=== PATIENT | male | born 1960 | race Caucasian/White ===

== ENCOUNTER 2020-04-11 05:35 | Inpatient (IN) ==
--- NOTE | 2020-04-07 12:20 | Anesthesiology Consultation ---
Date of Service April 07, 2020 Assessment & Plan (1) Encounter for pre-operative examination: Chart Review Chart Review: Acceptable Risk for Surgery (pending preop Covid testing ) and Patient NOT seen in Pre Admission Testing - Check BSG AM DOS Pt initially scheduled for surgery 03/20/20- rescheduled secondary to testing Covid positive on 03/13/20. Pt was seen in PAT dept on 03/06/20 by Vicki Massey PA-C- per review of consultation- Class II Metabolic Activity, no noted personal or FH anesthesia issues, no worrisome PE issues- Mallampati III. Per nursing assessment 04/07/20, patient denies any recent travel. Pt did test Covid positive 03/13/20- test was done for preop reasons- patient had no symptoms have Covid. Pt has remained asymptomatic- no recent Covid symptoms. No known Covid positive contacts. Pt had repeat Covid testing 04/04/20= awaiting results. Per PCP note: 01/26/20= "Patient was seen in our office 01/21/20. His DM is under better control and he has no current contraindication to surgery." History Surgery Operation Date: 04/11/20 12:25 Proposed Procedures p C5-C6 Anterior Cervical Discectomy Fusion, C4 Corpectomy - Isaac Elizalde DO Height/Weight Height: 5 ft 10 in Weight: 97.522 kg Allergies Allergy/AdvReac Type Severity Reaction Status Date / Time No Known Allergies Allergy Verified 04/07/20 12:12 Medications Home Medications Medication Instructions Recorded Confirmed Last Taken dulaglutide 1.5 mg/0.5 mL 1.5 mg SQ WEEKLY ml 04/21/19 04/07/20 Unknown subcutaneous pen injector glipizide 10 mg tablet, extended 10 mg PO QAM tab 04/21/19 04/07/20 Unknown release 24 hr insulin glargine 100 unit/mL (3 40 units SQ QPM ml 04/21/19 04/07/20 Unknown mL) subcutaneous pen lisinopril 10 1 tab PO QAM 04/21/19 04/07/20 Unknown mg-hydrochlorothiazide 12.5 mg tablet metformin 500 mg tablet 500 mg PO BID 04/21/19 04/07/20 Unknown simvastatin 40 mg PO QAM 10/08/19 04/07/20 Unknown Past Medical History Medical History Diabetes mellitus, type 2 IDDM Pt's Hgb A1C in 10/2019 was 12.2- had med adjustments- Hgb A1C now improved to 7.3 per 03/06/20 labs History of COVID-19 03/13/20 TESTED POSITIVE/NO SYMPTOMS (WAS TESTED PRIOR TO NECK SURGERY) Hyperlipidemia Hypertension Obesity Spinal stenosis cervical region Past Family History Family History Father CHF (congestive heart failure) Mother Diabetes Family history of diabetes mellitus Sister COPD (chronic obstructive pulmonary disease) Brother COPD (chronic obstructive pulmonary disease) Grandmother (Maternal) Family history of diabetes mellitus Past Surgical History Surgical History History of colonoscopy History of tooth extraction Social History Smoking Status: Never smoker tobacco type: smokeless tobacco Do You Dip or Chew Tobacco: Yes (2-3 cans in a week) Hx Alcohol Use: Yes Alcohol type: beer alcohol intake frequency: holidays/special occasions only Hx Substance Use: No Testing Laboratory Results Laboratory Tests 03/06/20 03/06/20 03/06/20 11:52 11:52 11:52 WBC 7.20 Hgb 15.8 Hct 46.8 Plt Count 258 PT 11.4 INR 1.1 APTT 24.8 Sodium 140 Potassium 4.1 Chloride 107 Carbon Dioxide 27 BUN 14 Creatinine 1.07 Glucose 71 Hemoglobin A1c 03/06/20 Unknown WBC Hgb Hct Plt Count PT INR APTT Sodium Potassium Chloride Carbon Dioxide BUN Creatinine Glucose Hemoglobin A1c 7.3 H 03/06/2020 = UA: Negative T&S: O+, antibody negative Electrocardiogram Date: 03/06/20 Findings: + NSR @ (69) Chest X-Ray Date: 10/14/19 Findings: + NAD
[2020-04-11] MEDS ORDERED: ceFAZolin 2000MG 2,000 MG/15 ML SYR IV SCH (06:00)
[2020-04-11] MEDS ORDERED: CeleBREX 200 MG CAP PO SCH (06:00)
[2020-04-11] MEDS ORDERED: GABAPENTIN 600 MG DOSE PO SCH (06:00)
[2020-04-11] MEDS ORDERED: LR 15ML/HR IV SCH (06:00)
[2020-04-11] MEDS: ACETAMINOPHEN 500 MG TAB PO SCH ×2 (06:15→12:58)
[2020-04-11] MEDS ORDERED: fentaNYL citrate 100 MCG/2 ML VIAL ONE ×2 (06:57→06:58)
[2020-04-11] MEDS ORDERED: MIDAZOLAM HCL 1 MG/ML 2ML VIAL ONE (06:57)
[2020-04-11] MEDS ORDERED: BACITRACIN INJ 50,000 UNIT VIAL ONE (07:03)
[2020-04-11] MEDS ORDERED: LIDOCAINE HCL 2% 2 ML VIAL/AMP(20MG/ML) INFIL ONE (07:09)
[2020-04-11] MEDS ORDERED: PROPOFOL IV EMULSION 10 MG/ML 20 ML VIAL IV ONE (07:09)
--- NOTE | 2020-04-11 07:11 | History & Physical Bridge Note ---
Date of Service April 11, 2020 History & Physical Bridge Note I have examined the patient, reviewed the History & Physical and in the interval since the performance of the History & Physical I have noted the following changes of clinical significance: no changes n Anterior cervical corpectomy C4 anterior cervical discectomy and fusion C5-C6
--- NOTE | 2020-04-11 07:12 | History & Physical Report ---
Date of Service April 11, 2020 Assessment & Plan (1) Stenosis of cervical spine with myelopathy: Admission and Anticipated Discharge Date Admission Date: Anterior cervical corpectomy C4 anterior cervical discectomy and fusion C5-C6 History of Present Illness Chief Complaint: Neck and arm pain Primary Care Provider: Jaison De La Cruz M.D. This is a 60-year-old male who presents with chronic persistent neck and arm pain is here for surgical invention. Allergies Allergy/AdvReac Type Severity Reaction Status Date / Time No Known Allergies Allergy Verified 04/11/20 05:52 Home Medications Medication Instructions Recorded Confirmed Type dulaglutide 1.5 mg/0.5 mL 1.5 mg SQ WEEKLY ml 04/21/19 04/11/20 History subcutaneous pen injector glipizide 10 mg tablet, extended 10 mg PO QAM tab 04/21/19 04/11/20 History release 24 hr insulin glargine 100 unit/mL (3 40 units SQ QPM ml 04/21/19 04/11/20 History mL) subcutaneous pen lisinopril 10 1 tab PO QAM 04/21/19 04/11/20 History mg-hydrochlorothiazide 12.5 mg tablet metformin 500 mg tablet 500 mg PO BID 04/21/19 04/11/20 History simvastatin 40 mg PO QAM 10/08/19 04/11/20 History Past Med/Surg History Medical History Diabetes mellitus, type 2 IDDM Pt's Hgb A1C in 10/2019 was 12.2- had med adjustments- Hgb A1C now improved to 7.3 per 03/06/20 labs History of COVID-19 03/13/20 TESTED POSITIVE/NO SYMPTOMS (WAS TESTED PRIOR TO NECK SURGERY) Hyperlipidemia Hypertension Obesity Spinal stenosis cervical region Surgical History History of colonoscopy History of tooth extraction Family History Father CHF (congestive heart failure) Mother Diabetes Family history of diabetes mellitus Sister COPD (chronic obstructive pulmonary disease) Brother COPD (chronic obstructive pulmonary disease) Grandmother (Maternal) Family history of diabetes mellitus Social History Smoking Status: Never smoker Second Hand Exposure: No; Do You Dip or Chew Tobacco: Yes (2-3 cans in a week); Tobacco Cessation Education Requested by Patient: No Hx Alcohol Use: Yes Alcohol type: beer Hx Substance Use: No Preferred Language: Swedish Communication Ability: Effective Glove Wrapper Required: No Beliefs That Will Affect Care: None Current Living Situation: Spouse Feels Safe at Home: Yes Safety Concerns: Feels Safe At This Time Assistive Devices: Glasses Physical Exam Physical Exam: Patient is alert and oriented Heart regular rate and rhythm Lungs clear to auscultation Results & Data ([facility]) Vital Signs (Past 12 Hours) Vital Signs Temp Pulse Resp BP Pulse Ox 04/11/20 06:06 36.6 C 72 18 158/96 H 99
[2020-04-11] MEDS ORDERED: fentaNYL citrate 100 MCG/2 ML VIAL IV PRN (07:26)
[2020-04-11] MEDS ORDERED: MEPERIDINE HCL 25 MG/ML CARP/VIAL IV PRN (07:26)
[2020-04-11] MEDS ORDERED: PHENYLEPHRINE 100MCG/ML 5ML SYR IV PRN (07:26)
[2020-04-11] MEDS ORDERED: ePHEDrine sulfate 50 MG/ML AMP IV PRN (07:26)
[2020-04-11] MEDS ORDERED: ATROPINE SULFATE 0.1 MG/ML 10ML SYR IV PRN (07:26)
[2020-04-11] MEDS ORDERED: HYDROmorphone INJ 1 MG/ML SYRINGE IV PRN ×2 (07:26→11:38)
[2020-04-11] MEDS ORDERED: ONDANSETRON INJ 2 MG/ML 2 ML VIAL IV PRN ×2 (07:26→11:38)
[2020-04-11] MEDS ORDERED: LABETALOL HCL IV 5 MG/ML 20ML IV PRN (07:26)
[2020-04-11] MEDS ORDERED: DEXAMETHASONE SOD INJ 4 MG/ML VIAL ONE (08:14)
[2020-04-11] MEDS ORDERED: ROCURONIUM BROMIDE 10 MG/ML 5 ML VIAL IV ONE (08:14)
[2020-04-11] MEDS ORDERED: ePHEDrine sulfate 50 MG/ML SYR ONE (08:14)
[2020-04-11] MEDS ORDERED: ONDANSETRON INJ 2 MG/ML 2 ML VIAL ONE (08:14)
[2020-04-11] MEDS ORDERED: FLOSEAL HEMOSTATIC MATRIX 10ML TOP ONE (08:26)
[2020-04-11] MEDS ORDERED: NEOSTIGMINE METHYLSULFATE 1 MG/ML 10ML VIAL ONE (08:28)
[2020-04-11] MEDS ORDERED: GLYCOPYRROLATE 0.2 MG/ML VIAL ONE (08:28)
--- NOTE | 2020-04-11 09:53 | Operative Report ---
Post Operative Report Pre & Post Diagnosis Operation Date: 04/11/20 07:45 Pre-Op Diagnosis: Cervical spinal stenosis with myeloradiculopathy Post-Op Diagnosis: Same I identified the patient and participated in the time-out.: Yes Procedure Operation Date: 04/11/20 07:45 Actual Procedures #1 anterior cervical corpectomy with bilateral foraminotomies C4. #2 anterior cervical discectomy with bilateral foraminotomies C5-C6. #3 anterior cervical arthrodesis C3-C5 and C5-C6. #4 placement peek cage 27 mm in height at C3-C5 and 7 mm height at C5-C6. #5 placement locally harvested morselized autograft combined with DBM and the interbody cages. #6 application of 5 complete screws from C3-C6. Surgeon Isaac Elizalde, DO Lab Rn Alexandra Diaz Estimated Blood Loss 20 Findings Consistent with Post-Op Diagnosis Specimens None Indications This is a 60-year-old male who presents with above-mentioned diagnosis after failing course of nonoperative care is here for the above-mentioned procedure. Description of Procedure Patient was met with identified informed consent obtained. 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 All bony prominences well-padded eyes inspected to ensure no external pressure placed upon. This point anterior cervical spine was prepped and draped no sterile fashion. The assistance of fluoroscopy identified the C for C5 displacement transverse incision was placed along the right anterior aspect of the cervical spinal lines region. Sharp dissection with the assistance of bipolar electrocautery was performed down to and exposing the anterior cervical spine from C3-C6. Self-retaining retractor was placed. Then performed a complete discectomy of C3-4 out to the uncovertebral joints bilateral as well as complete discectomy of C4-C5 to the uncovertebral joints bilaterally. [place] distracting pins were then placed in C3 and C5 distract across the C4 vertebral body. I then performed a complete corpectomy of C4 including removal of all posterior annular fibers and longitudinal ligament bilateral foraminotomies performed for complete decompression. Endplates were then burred to subcortical bleeding bone and a 27 mm peek cage filled with locally harvested morselized autograft and DBM tapped in position. Then proceeded to C5-C6 level again complete discectomy performed out to the uncovertebral bilaterally. Bilateral foraminotomies were performed endplates then burred to subcortical bleeding bone and a 7 mm peek cage filled with locally harvested morselized autograft and DBM tapped in position. Distracting apparatus was removed. All anterior osteophytes were burred to a smooth cortical surface and a grande plate e screws applied with the assistance of fluoroscopy. The incision was then copiously irrigated explored to ensure no damage surrounding structures remaining bleeding. 10 round AUR[place]A drain was then inserted. Incision was then closed with 1 Vicryl fascia 2-0 Vicryl subcutaneously and 4 Monocryl for final closure. Steri-Strip sterile dressings placed. Patient waken taken to PACU stable condition. Please note spinal cord monitoring was utilized at the procedure no changes noted. Lastly Alexandra Diaz was present throughout the entire procedure involved the patient positioning complex portions of the surgery and final skin closure. I attest to the content of the Intraoperative Record and any orders documented therein. Any exceptions are noted below.
--- NOTE | 2020-04-11 10:12 | Fluoroscopy Report ---
FL cervical 2-3V HISTORY: 60 years-old Male ACDF C5-C6 / C4 CORPECTOMY chronic neck pain with cervical fusion COMPARISON: None TECHNIQUE: 2 spot fluoroscopic images of the cervical spine were obtained utilizing 16.5 seconds fluo roscopy time FINDINGS: Anterior plate and screw fusion noted at what appears to be the C3-C7 levels with corpectomy changes at C4. The hardware appears intact. Alignment is satisfactory without acute fracture. No unexpected r etained foreign body identified. IMPRESSION: Fluoroscopic assistance as above. ACT 112: Negative or not required by law. The above report was generated using voice recognition software. It may contain grammatical, syntax o r spelling errors. Electronically signed by: Jaxon Kelly M.D. 04/11/2020 10:11 AM
--- NOTE | 2020-04-11 10:54 | Anesthesiology Progress Note ---
Date of Service April 11, 2020 Anesthesia Post Procedure Vital Signs Vital Signs: Temp Pulse Pulse Resp BP Pulse Ox 04/11/20 10:40 79 18 137/89 98 04/11/20 10:30 71 20 147/87 H 97 04/11/20 10:20 69 16 150/89 H 100 04/11/20 10:10 71 20 146/87 H 100 04/11/20 10:00 98 H 20 122/100 100 04/11/20 09:58 36.2 C L 86 16 150/97 H 100 04/11/20 06:06 36.6 C 72 18 158/96 H 99 Transfer of Care Handoff Completed per policy Notes Mental Status: alert / awake / arousable Patient Amnestic to Procedure: Yes Nausea / Vomiting: adequately controlled Pain: adequately controlled Airway Patency, RR, SpO2: stable & adequate BP & HR: stable & adequate Hydration State: stable & adequate Anesthetic Complications: no major complications apparent and Pt Satisfied with anesthetic care Notes: The patient is awake and comfortable. His neck is not swollen and his dressing is dry.
[2020-04-11] MEDS ORDERED: NALOXONE HCL 0.4 MG/1 ML VIAL/CARP IV PRN (11:38)
[2020-04-11] MEDS ORDERED: HYDROmorphone INJ 0.5 MG/0.5 ML SYR IV PRN (11:38)
[2020-04-11] MEDS ORDERED: ALUMINUM/MAGNESIUM SUSP 30 ML UDC PO PRN (11:38)
[2020-04-11] MEDS ORDERED: DO NOT ADMINISTER PNEUMOCOCCAL VACCINE PRN (11:38)
[2020-04-11] MEDS ORDERED: diphenhydrAMINE Capsule 25 MG CAP PO PRN (11:38)
[2020-04-11] MEDS ORDERED: RACEPINEPHRINE 2.25% NEBU SOLN 0.5 ML VIAL INH PRN (11:38)
[2020-04-11] MEDS ORDERED: PROMETHAZINE HCL 12.5 MG in SODIUM CHLORIDE 0.9% 50 ML IV PRN (11:38)
[2020-04-11] MEDS ORDERED: FAMOTIDINE 20 MG TAB PO PRN (11:38)
[2020-04-11] MEDS ORDERED: LORazepam 0.5 MG/1 ML VIAL IV PRN (11:38)
[2020-04-11] MEDS ORDERED: SOD PHOSPHATE/SOD BIPHOSPHATE ENEMA 132 ML BTL PR PRN (11:38)
[2020-04-11] MEDS ORDERED: ACETAMINOPHEN 1,000 MG/100 ML VIAL IV PRN (11:38)
[2020-04-11] MEDS ORDERED: METOCLOPRAMIDE HCL INJ 5 MG/ML 2 ML VIAL IV PRN (11:38)
[2020-04-11] MEDS ORDERED: ONDANSETRON 4 MG OD TAB PO PRN (11:38)
[2020-04-11] MEDS ORDERED: traMADol HCL 50 MG TABLET PO PRN (11:38)
[2020-04-11] MEDS ORDERED: MAGNESIUM HYDROXIDE SUSP 30 ML UDC PO PRN (11:38)
[2020-04-11] MEDS ORDERED: NON-FORMULARY MEDICATION (Dulaglutide [Trulicity] 1.5 mg/0.5 mL pen injector) SQ SCH (11:38)
[2020-04-11] MEDS ORDERED: dexAMETHasone 8 MG in SYRINGE 0 ML IV PRN (11:38)
[2020-04-11] MEDS ORDERED: ACETAMINOPHEN 500 MG TAB PO PRN (11:38)
[2020-04-11] MEDS ORDERED: LORazepam 0.5 MG TAB PO PRN (11:38)
[2020-04-11] MEDS ORDERED: oxyCODONE HCL IR 5 MG TAB (IMMEDIATE RELEASE) PO PRN (11:38)
[2020-04-11] MEDS ORDERED: hydrOXYzine HCl 25 MG TAB PO PRN (11:38)
[2020-04-11] MEDS ORDERED: DO NOT ADMINISTER FLU VACCINE PRN (11:38)
[2020-04-11] MEDS ORDERED: PHARMACY GLYCEMIC MGMT CONSULT PRN (11:54)
--- NOTE | 2020-04-11 12:27 | Hospitalist Consultation ---
Date of Consultation April 11, 2020 Assessment & Plan (1) Stenosis of cervical spine with myelopathy: - POD#0 anterior cervical corpectomy at C4 and ACDF C5-C6 by Dr. Elizalde - activity and wound care orders as per ortho - pain control with bowel regimen - PT/OT - monitor H/H for acute blood loss anemia and transfuse blood products PRN - EBL 20 cc (2) Diabetes mellitus: -Hgb A1c 7.3 02/2019 -Managed on Basaglar, glipizide, Trulicity, Metformin at home -Glycemic pharmacy consulted by spine Ortho (3) Hypertension: -BP controlled, continue lisinopril/HCTZ (4) DVT prophylaxis: -TEDs/SCDs as per spine Ortho Thank you for this consultation. We will follow the patient with you during their hospital stay. You can reach a member of the [facility] Hospitalist Team 09/09 via pager @ [phone]. Supervising Physician Co-Signing Physician Notes I have seen and examined the patient and have discussed the case with the provider above. I agree with the assessment and plan as stated. Patient denies any uncontrolled pain or nausea at this time. He is attempting a diet of clear liquids and is overall doing very well. My exam mirrors that above. He is mentating clearly and has full strength and sensation in upper extremities and hands grossly. Pharmacy has been consulted to assist with glycemic management as inpatient. Will follow along with your care. Thank you for this consultation. DO Osman [facility] History of Present Illness Reason for Consultation: Post Op Medical Management Requesting Physician: Dr. Elizalde Attending Physician: Dr. Brewer History of Present Illness 60-year-old male with PMH HTN, DM type II on insulin, HLD, and other problems listed below who is status post anterior cervical corpectomy at C4 and ACDF C5- C6 today by Dr. Elizalde. Postoperatively, the patient is doing well. He reports his pain is well controlled. Numbness and tingling that was present to the bilateral hands prior to surgery has now resolved. Denies chest pain and shortness of breath. No lightheadedness or dizziness. Denies abdominal pain and nausea. Strength is strong, equal, and intact to the bilateral upper extremities. Allergies Allergy/AdvReac Type Severity Reaction Status Date / Time No Known Allergies Allergy Verified 04/11/20 05:52 Home Medications Medication Instructions Recorded Confirmed Type dulaglutide 1.5 mg/0.5 mL 1.5 mg SQ WEEKLY ml 04/21/19 04/11/20 History subcutaneous pen injector glipizide 10 mg tablet, extended 10 mg PO QAM tab 04/21/19 04/11/20 History release 24 hr insulin glargine 100 unit/mL (3 40 units SQ QPM ml 04/21/19 04/11/20 History mL) subcutaneous pen lisinopril 10 1 tab PO QAM 04/21/19 04/11/20 History mg-hydrochlorothiazide 12.5 mg tablet metformin 500 mg tablet 500 mg PO BID 04/21/19 04/11/20 History simvastatin 40 mg PO QAM 10/08/19 04/11/20 History oxycodone 5 mg PO Q6H PRN #20 tab 04/11/20 Rx tramadol 50 mg PO Q6H PRN #20 tab 04/11/20 Rx Patient History Medical History Diabetes mellitus, type 2 IDDM Pt's Hgb A1C in 10/2019 was 12.2- had med adjustments- Hgb A1C now improved to 7.3 per 03/06/20 labs History of COVID-19 03/13/20 TESTED POSITIVE/NO SYMPTOMS (WAS TESTED PRIOR TO NECK SURGERY) Hyperlipidemia Hypertension Obesity Spinal stenosis cervical region Surgical History History of colonoscopy History of tooth extraction Family History Father CHF (congestive heart failure) Mother Diabetes Family history of diabetes mellitus Sister COPD (chronic obstructive pulmonary disease) Brother COPD (chronic obstructive pulmonary disease) Grandmother (Maternal) Family history of diabetes mellitus Social History Smoking Status: Never smoker Second Hand Exposure: No; Do You Dip or Chew Tobacco: Yes (2-3 cans in a week); Tobacco Cessation Education Requested by Patient: No Hx Alcohol Use: Yes Alcohol type: beer Hx Substance Use: No Preferred Language: Albanian Communication Ability: Effective Fish Butcher Required: No Beliefs That Will Affect Care: None Current Living Situation: Spouse Feels Safe at Home: Yes Safety Concerns: Feels Safe At This Time Assistive Devices: Glasses Review of Systems Review of Systems: ROS per HPI, all other systems reviewed and negative Physical Exam Constitutional: WD/WN, vitals as above Eyes: PERRL, conjunctivae normal, anicteric sclerae Neck: s/p neck surgery, cervical collar in place, surgical dressing dry and intact, drain in place draining bloody drainage Respiratory: normal respiratory effort, lungs clear to auscultation no stridor Cardiovascular: Rate/Rhythm: regular rate and regular rhythm Vessels: normal peripheral pulses Extremities: no edema Gastrointestinal (Abdomen): normal bowel sounds, soft, nontender, no hepatosplenomegaly Musculoskeletal: no cyanosis or clubbing, extremities motor strength 5/5 Skin: no rashes, warm and dry Neurologic: PERRL, EOMI, accommodation nl, no face palsy, no dysarthria Psychiatric: A+Ox3, euthymic affect Results & Data Results & Data ([facility]) Vital Signs (Past 12 Hours) Vital Signs Temp Pulse Pulse Pulse Resp BP Pulse Ox 04/11/20 11:55 36.3 C L 94 H 18 146/83 H 97 04/11/20 11:38 78 14 96 04/11/20 11:25 36.6 C 80 18 151/86 H 98 04/11/20 11:10 82 18 130/84 97 04/11/20 11:00 36.6 C 73 20 158/91 H 96 04/11/20 10:50 36.6 C 69 18 157/83 H 96 04/11/20 10:40 79 18 137/89 98 04/11/20 10:30 71 20 147/87 H 97 04/11/20 10:20 69 16 150/89 H 100 04/11/20 10:10 71 20 146/87 H 100 04/11/20 10:00 98 H 20 122/100 100 04/11/20 09:58 36.2 C L 86 16 150/97 H 100 04/11/20 06:06 36.6 C 72 18 158/96 H 99
[2020-04-11] MEDS: INSULIN ASPART 100 UNITS/ML 3 ML PEN SC SCH ×3 (12:55→20:48)
[2020-04-11] MEDS ORDERED: INSULIN GLARGINE SOLOSTAR 100 UNITS/ML 3 ML PEN SC ONE (13:00)
--- NOTE | 2020-04-11 13:42 | Pharmacy Report ---
Pharmacy Glycemic Short Note 2 - Date of Service April 11, 2020 - Glycemic Short BSG Results (Last 24 hours): 04/11/20 04/11/20 10:01 12:52 POC Glucose 83 145 H OUTPATIENT ANTIDIABETIC REGIMEN: * Basaglar 40 units SC qPM * Metformin 500 mg PO BIDM * Glipizide 10 mg PO qAM * Trulicity 1.5 mg SC Sundays * HbA1c: 7.3% (03/06/20) ASSESSMENT: * WC is a 60 year old male POD #0 s/p spinal surgery * Received 8 mg IV dexamethasone intraoperatively * Preoperative BSG of 83 mg/dL * Postoperative BSG of 145 mg/dL * Will give outpatient basal dose with lunch and start weight-based stress of 3 Novolog to help prevent steroid-induced hyperglycemia PLAN FOR INPATIENT GLYCEMIC CONTROL: * Hold outpatient oral diabetes medications * Basal insulin * Lantus 40 units SC x 1 with lunch * Lantus 0-10 units SC HS based on BSG (see EHR for details) * Bolus insulin * NovoLog per scale ACHS or Q6hrs while NPO * Goal Range: Low 110 mg/dL - High 140 mg/dL * Correction Factor: 15 mg/dL/unit * Nutritional / Prandial insulin per carb ratio of 1 unit per 5 grams CHO consumed * Overnight checks at 00,04 this evening PLAN FOR DISCHARGE: * Reasonable HbA1c goal for most adults is less than 7% * Patient's A1c is slightly above goal - could consider titrating metformin dosing upwards as recommended/tolerated. Dosage increases should be made in increments of 500 mg weekly, up to 2,000 mg/day PO.
[2020-04-11] MEDS: ceFAZolin 2000MG 2,000 MG/15 ML SYR IV SCH (16:36)
[2020-04-11] MEDS: SODIUM CHLORIDE 0.9% 1000ML 1,000 ML IV SCH ×2 (18:41)
[2020-04-11] MEDS ORDERED: DOCUSATE SODIUM/SENNA 50/8.6MG TAB PO SCH (21:00)
[2020-04-11] MEDS ORDERED: INSULIN GLARGINE SOLOSTAR 100 UNITS/ML 3 ML PEN SC SCH (21:00)
[2020-04-12] MEDS: ceFAZolin 2000MG 2,000 MG/15 ML SYR IV SCH (00:46)
[2020-04-12] MEDS: INSULIN ASPART 100 UNITS/ML 3 ML PEN SC SCH ×4 (00:58→12:39)
[2020-04-12] MEDS: CARBOHYDRATES FOR HYPOGLYCEMIA PO PRN ×3 (04:55→05:47)
[2020-04-12] MEDS ORDERED: GLUCOSE 10 TABS/TUBE PO PRN (05:30)
[2020-04-12] MEDS ORDERED: GLUCOSE 40% GEL 15 GM TUBE PO PRN (05:30)
[2020-04-12] MEDS ORDERED: GLUCAGON FOR INJ 1 MG VIAL IM PRN (05:30)
[2020-04-12] MEDS ORDERED: DEXTROSE 50% 50 ML SYRINGE IV PRN (05:30)
[2020-04-12 07:14] LABS: Basophils # (auto) 0.01 K/uL (0-0.2); Basophils % (auto) 0.1 %; Eosinophils % (auto) 1.1 %; Hematocrit (blood only) 38.1 % (42-52); Hemoglobin 12.8 g/dL (14.0-18.0); Immature Granulocytes # (auto) 0.02 K/uL (0.00-0.02); Immature Granulocytes % (auto) 0.2 %; Lymphocytes # (auto) 1.51 K/uL (1.2-3.4); Lymphocytes % (auto) 16.1 %; Mean Corpuscular Hemoglobin 29.5 pg (25-34); Mean Corpuscular Hgb Conc 33.6 g/dL (32-36); Mean Corpuscular Volume 87.8 fL (80-100); Mean Platelet Volume 9.6 fL (7.4-10.4); Monocytes # (auto) 0.95 K/uL (0.11-0.59); Monocytes % (auto) 10.1 %; Neutrophils # (auto) 6.78 K/uL (1.4-6.5); Neutrophils % (auto) 72.4 %; Platelet Count 198 K/uL (130-400); RDW Coefficient of Variation 13.8 % (11.5-14.5); RDW Standard Deviation 44.4 fL (36.4-46.3); Red Blood Count 4.34 M/uL (4.7-6.1); White Blood Count 9.37 K/uL (4.8-10.8)
[2020-04-12 07:43] LABS: BUN Creatinine Ratio 9.6 (10-20); Calcium 8.8 mg/dl (8.5-10.1); Creatinine Clr Calc Pharmacy 79.8 ml/min; Est GFR (African American) 79.4; Est GFR (Non-African American) 68.5
[2020-04-12] MEDS ORDERED: SIMVASTATIN 40 MG TAB PO SCH (09:00)
[2020-04-12] MEDS ORDERED: LISINOPRIL/HCTZ 10/12.5MG TAB PO SCH (09:00)
[2020-04-12] MEDS ORDERED: NON-FORMULARY MEDICATION (Glipizide 10 mg tablet extended release 24hr) PO SCH (09:00)
--- NOTE | 2020-04-12 09:04 | Pharmacy Report ---
Pharmacy Glycemic Short Note 2 - Date of Service April 12, 2020 - Glycemic Short BSG Results (Last 24 hours): 04/11/20 04/11/20 04/11/20 06:08 10:01 12:52 Glucose POC Glucose 82 83 145 H 04/11/20 04/11/20 04/12/20 17:05 20:46 00:47 Glucose POC Glucose 221 H 182 H 91 04/12/20 04/12/20 04/12/20 04:52 05:19 05:44 Glucose POC Glucose 52 L* 56 L* 65 L* 04/12/20 04/12/20 04/12/20 06:07 06:59 07:52 Glucose 158 H POC Glucose 110 H 173 H OUTPATIENT ANTIDIABETIC REGIMEN: * Basaglar 40 units SC qPM * Metformin 500 mg PO BIDM * Glipizide 10 mg PO qAM * Trulicity 1.5 mg SC Sundays * HbA1c: 7.3% (03/06/20) ASSESSMENT: 04/12/20: * BSGs yesterday of 83, 145, 221, 182, and 91 mg/dL * Patient had hypoglycemic episode overnight (BSG of 52 mg/dL, treated ), but was asymptomatic other than increased hunger * Diet advanced and patient had snack of peanut butter, nita crackers, and milk - BSG increased to 110 mg/dL * No ongoing steroids ordered - will plan to continue home basal dose (will give with dinner this evening to work back to HS dosing) * Will maintain aggressive Novolog parameters this morning and loosen starting with lunch 04/11/20: * WC is a 60 year old male POD #0 s/p spinal surgery * Received 8 mg IV dexamethasone intraoperatively * Preoperative BSG of 83 mg/dL * Postoperative BSG of 145 mg/dL * Will give outpatient basal dose with lunch and start weight-based stress of 3 Novolog to help prevent steroid-induced hyperglycemia PLAN FOR INPATIENT GLYCEMIC CONTROL: * Hold outpatient oral diabetes medications * Basal insulin * Tentative plan: Lantus 40 units SC HS (will give with dinner this evening and switch to HS thereafter) * Bolus insulin * NovoLog per scale ACHS or Q6hrs while NPO * Goal Range: Low 110 mg/dL - High 140 mg/dL * Correction Factor: 30 mg/dL/unit * Nutritional / Prandial insulin per carb ratio of 1 unit per 10 grams CHO consumed PLAN FOR DISCHARGE: * Reasonable HbA1c goal for most adults is less than 7% * Patient's A1c is slightly above goal - could consider titrating metformin dosing upwards as recommended/tolerated. Dosage increases should be made in increments of 500 mg weekly, up to 2,000 mg/day PO.
[2020-04-12] MEDS ORDERED: POLYETHYLENE (MIRALAX) 17 GM PACK PO SCH (10:00)
--- NOTE | 2020-04-12 11:58 | Discharge Summary ---
Date of Service April 12, 2020 Admission HPI Per Admitting Provider This is a 60-year-old male who presents with chronic persistent neck and arm pain is here for surgical invention. Principal Diagnosis Cervical spinal stenosis with myeloradiculopathy Discharge Data Allergies Allergy/AdvReac Type Severity Reaction Status Date / Time No Known Allergies Allergy Verified 04/11/20 05:52 Consultations 04/11/20 11:38 Consult Hospitalist Routine Procedures Performed Operation Date: 04/11/20 07:45 Actual Procedures p C5-C6 Anterior Cervical Discectomy Fusion, C4 Corpectomy(Not Applicable) - Isaac Elizalde DO Ordered Studies 04/11/20 07:45 FL cervical 2-3V Routine FL fluoroscopy <1hr Routine Hospital Course (1) Stenosis of cervical spine with myelopathy: Patient 1 anterior cervical corpectomy and fusion 12 as well as taken to orthopedic for possibly. Postop day 1 he swallowing well no hoarseness. Arm symptoms markedly improved. Strength intact. [place] drain decreasing appropriately. Subsequent discharge home. Discharge orders instructions from the chart for further review. Total Time Total Time Spent Total Time Spent (In Minutes): 20 minutes Discharge Plan Discharge Items Patient Disposition: Home - Self-Care Reason For Visit: Spinal Stenosis, Cervical Region Discharge Diagnosis: Cervical spinal stenosis with myeloradiculopathy Activity: As commented below Non-emergency contact: Primary Care Provider Call non-emergency contact if: you have any medication questions Follow-up/Referrals: Jaison De La Cruz M.D. [Primary Care Provider] - Diet: Regular Addtl Attending Provider Instructions: ACTIVITY RECOMMENDATIONS: SELF CARE INSTRUCTIONS AFTER CERVICAL FUSIONS 1. No smoking. Smoking drastically decreases the chance of a solid fusion. 2. No bending, lifting more than 5 pounds, or twisting (roll like a log when turning in bed). 3. You may shower 3 days after surgery. Thoroughly dry wound. Do not soak in the tub. 4. Cervical collar: Must be worn at all times including sleeping. You may remove the brace only to bath, eat and if you are sitting in a recliner. 5. Please walk as much as you can for exercise. Gradually increase the distance that you walk as your endurance increases. SPECIAL CARE INSTRUCTIONS: VERY IMPORTANT TO READ AND REVIEW A. Do not take any anti-inflammatory medications (i.e. Indocin, Advil, Aspirin, Naprosyn, Aleve, Motrin, etc.) as these may inhibit the chance of a solid fusion. Tylenol is okay to take. B. Your surgical incision has been closed with a cosmetic suture under the skin that will dissolve in about 6 weeks. In 14 days, you can use a pair of clean scissors and cut the suture that is left outside of the skin at the ends of your incision. C. Complications are uncommon, but please contact us if you have any signs or symptoms of: 1. wound infection (fever higher than 102.5 degrees F, redness, separation of wound, drainage, or increasing pain from the incision) 2. blood clots in legs (pain, swelling, redness and warmth in legs) 3. urinary tract infection (fever higher than 102.5 degrees, burning upon urination or increased frequency of urination) 4. nerve problems (inability to walk on your toes or heels, numbness, loss of bowel or bladder control) 5. any other symptoms that concern you. D. Please call the office at if you have any concerns or questions about your operation or recovery. MANAGING PAIN AFTER SPINAL SURGERY 1. Narcotic medication is intended for short-term use and will be provided for surgical pain. Surgical pain usually lasts for a period of 4-6 weeks. Narcotic medication includes Percocet, Vicodin, Darvocet, Tylenol #3 or Lortab. 2. Longer-term pain is more appropriately treated with non-narcotic medication such as Tylenol ES. 3. Muscle spasm is not appropriately treated with narcotics. Muscle relaxers such as Soma, Flexeril or Skelaxin can be used along with Tylenol ES. 4. Remember that we all live with some "aches and pains". This is not unusual or uncommon after an injury or as we get older. 5. We will provide appropriate medication within the normal guidelines of their prescribed use. We will also be very cautious and aware of potential abuse and extended duration of patients' medication needs. 6. Please allow 2-3 days to process refills. Prescriptions will not be mailed but must be picked up at the office. FOLLOW UP VISIT: Keep your scheduled follow-up appointment. Any questions, please call the office at . Pending Studies at Discharge: No Stand-Alone Forms: [employer], Smoking Cessation Medications and DC Order Prescriptions: New tramadol 50 mg tablet 50 mg PO Q6H PRN (Reason: pain, moderate) Qty: 20 RF: 0 oxycodone 5 mg tablet 5 mg PO Q6H PRN (Reason: pain, severe) Qty: 20 RF: 0 Continued Trulicity 1.5 mg/0.5 mL pen injector 1.5 mg SQ WEEKLY RF: 0 Basaglar KwikPen U-100 Insulin 100 unit/mL (3 mL) insulin pen 40 units SQ QPM RF: 0 metformin 500 mg tablet 500 mg PO BID RF: 0 lisinopril-hydrochlorothiazide 10-12.5 mg tablet 1 tab PO QAM RF: 0 glipizide 10 mg tablet extended release 24hr 10 mg PO QAM RF: 0 simvastatin 40 mg Tablet 40 mg PO QAM RF: 0 Discharge Orders: Discharge Order (Routine); Ordered 04/12/20 Ordered By: Isaac Elizalde Admission Data Admit Date/Time: 04/11/20 10:30 Attending Provider: Isaac Elizalde Admit Provider: Isaac Elizalde Primary Care Provider: Jaison De La Cruz Other Providers: Samuel Pool
[2020-04-13] MEDS ORDERED: bisacodyL 10 MG SUPP PR PRN (09:54)
== END 2020-04-12 14:24 | disposition home or self-care (01) | DRG 472 ==
LOC: 3E 05:35 → ASU 05:35 → OBSVTOIN 10:30